=== PATIENT | male | born 1980 ===

== ENCOUNTER 2017-04-21 16:22 | Emergency (ER) | payer MEDICARE ==
--- NOTE | 2017-04-21 17:12 | C.PDOC ---
History Of Present Illness 36 y/o male brought by ambulance to ED. Pt states he drank alcohol. Denies drug use or any physical complaints. Pr is ambulating steady and requests to be discharged. Chief Complaint (Nursing): Substance Abuse History Per: Patient History/Exam Limitations: no limitations Onset/Duration Of Symptoms: Hrs Current Symptoms Are (Timing): Still Present Suicide/Self Injury Attempted (Context): None Modifying Factor(s): Alcohol Associated Symptoms: denies: Anger, Depression, Suicidal Thoughts, Suicidal Plan Involuntary Hold By: None Recent travel outside of the [place]: No Past Medical History Reviewed: Historical Data, Nursing Documentation, Vital Signs Vital Signs: Last Vital Signs Temp 99 F 04/21/17 17:45 Pulse 70 04/21/17 17:45 Resp 20 04/21/17 17:45 BP 160/80 H 04/21/17 17:45 Pulse Ox 99 04/21/17 17:45 - Medical History PMH: No Chronic Diseases Surgical History: No Surg Hx Family History: States: No Known Family Hx - Social History Hx Alcohol Use: No Hx Substance Use: No - Immunization History Hx Tetanus Toxoid Vaccination: No Hx Influenza Vaccination: No Hx Pneumococcal Vaccination: No Review Of Systems Constitutional: Negative for: Fever, Chills Cardiovascular: Negative for: Chest Pain, Palpitations Gastrointestinal: Negative for: Nausea, Vomiting, Abdominal Pain, Diarrhea Skin: Negative for: Rash, Lesions, Jaundice, Bruising Neurological: Negative for: Weakness, Numbness Psych: Negative for: Suicidal ideation Physical Exam - Physical Exam Appears: Well, Non-toxic, No Acute Distress Skin: Normal Color, Warm, Dry Head: Atraumatic, Normacephalic Eye(s): bilateral: Normal Inspection Oral Mucosa: Moist Neck: Supple Chest: Symmetrical, No Tenderness Cardiovascular: Rhythm Regular Respiratory: Normal Breath Sounds, No Decreased Breath Sounds, No Rales, No Rhonchi, No Wheezing Gastrointestinal/Abdominal: Soft, No Tenderness, No Distention, No Guarding, No Rebound Extremity: Normal ROM, No Tenderness, No Pedal Edema Extremity: Bilateral: Normal Color And Temperature, Normal ROM Neurological/Psych: Oriented x3, Normal Speech, Normal Cognition Medical Decision Making Medical Decision Making: Ordered drug screen. Disposition - Disposition Referrals: [facility] [Outside] [facility] [Outside] Disposition: HOME/ ROUTINE Disposition Time: 17:20 Condition: GOOD Additional Instructions: Thank you for letting us take care of you today. The emergency medical care you received today was directed at your acute symptoms. If you were prescribed any medication, please fill it and take as directed. It may take several days for your symptoms to resolve. Return to the Emergency Department if your symptoms worsen, do not improve, or if you have any other problems. Please contact your doctor or call one of the physicians/clinics you have been referred to that are listed on the Patient Visit Information form that is included in your discharge packet. Bring any paperwork you were given at discharge with you along with any medications you are taking to your follow up visit. Our treatment cannot replace ongoing medical care by a primary care provider (PCP) outside of the emergency department. Thank you for allowing the [facility] team to be part of your care today. Follow up with your doctor or the clinic next week for re-evaluation and further management. Instructions: Abuse of Alcohol (ED) Forms: [employer] (East [place]orese) - Clinical Impression Clinical Impression: Alcohol abuse - Scribe Statement The provider has reviewed the documentation as recorded by the Aliyaibelzbieta Peoples All medical record entries made by the Aliyaibelzbieta were at my direction and personally dictated by me. I have reviewed the chart and agree that the record accurately reflects my personal performance of the history, physical exam, medical decision making, and the department course for this patient. I have also personally directed, reviewed, and agree with the discharge instructions and disposition.
[2017-04-21 17:45] VITALS: RESP 20
[2017-04-21 17:47] VITALS: BP 160/80; PULSE 70; TEMP 99; O2SAT 99
== END 2017-04-21 17:45 | disposition home or self-care (01) ==
LOC: C.ER 16:22
DX: F10.10 Alcohol abuse, uncomplicated (principal); Y90.9 Presence of alcohol in blood, level not specified

== ENCOUNTER 2017-09-08 22:29 | Emergency (ER) | payer MEDICARE, MEDICAID ==
[2017-09-08 22:45] VITALS: BP 152/90; PULSE 90; RESP 18; TEMP 99; O2SAT 97
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
== END 2017-09-09 00:30 | disposition left against medical advice (07) ==
LOC: C.ER 22:29
DX: F19.10 Other psychoactive substance abuse, uncomplicated (principal)

== ENCOUNTER 2017-12-04 15:40 | Emergency (ER) | payer MEDICARE, MEDICAID ==
[2017-12-04 16:05] VITALS: RESP 16; O2SAT 98
--- NOTE | 2017-12-04 16:07 | C.PDOC ---
History Of Present Illness 37 yr old male w/ hx of etoh abuse, PCP Abuse presents BIBA for medical clearance. Per notes pt was outside, and appeared drunk. He denies any SI, HI, but notes drinking today. He denies any depression, falls, chest pain or sob. No nausea or vomiting. No falls. No neck stiffness or fever. No other complaints. Time Seen by Provider: 12/04/17 16:02 Chief Complaint (Nursing): Medical Clearance History Per: Patient Past Medical History Vital Signs: Last Vital Signs Temp 98.6 F 12/04/17 16:04 Pulse 69 12/04/17 16:04 Resp 16 12/04/17 16:04 BP 152/84 H 12/04/17 16:04 Pulse Ox 98 12/04/17 16:04 - Medical History PMH: Asthma Family History: States: Unknown Family Hx - Social History Hx Alcohol Use: No Hx Substance Use: Yes - Immunization History Hx Tetanus Toxoid Vaccination: No Hx Influenza Vaccination: No Hx Pneumococcal Vaccination: No Review Of Systems Constitutional: Negative for: Fever Eyes: Negative for: Pain ENT: Negative for: Ear Pain Cardiovascular: Negative for: Chest Pain Respiratory: Negative for: Cough Gastrointestinal: Negative for: Nausea, Vomiting Genitourinary: Negative for: Dysuria Musculoskeletal: Negative for: Neck Pain Skin: Negative for: Rash Neurological: Negative for: Weakness, Numbness, Incoordination, Change in Speech, Seizures, Headache Psych: Negative for: Anxiety, Depression, Psychosis, Suicidal ideation, Withdrawal Physical Exam - Physical Exam Appears: Well, Non-toxic, No Acute Distress Skin: Normal Color, Warm, Dry Head: Atraumatic, Normacephalic, No Tenderness Eye(s): bilateral: Normal Inspection, PERRL, EOMI Ear(s): Bilateral: Normal Nose: Normal Throat: Normal Neck: Normal Cardiovascular: Rhythm Regular Respiratory: Normal Breath Sounds Gastrointestinal/Abdominal: Normal Exam Back: Normal Inspection, No CVA Tenderness Extremity: Normal ROM, No Tenderness Extremity: Bilateral: Atraumatic Neurological/Psych: Oriented x3, Normal Speech, Normal Cranial Nerves, No Cerebellar Signs, Normal Motor, Normal Sensation Gait: Steady Other Neurological Findings: No Facial Palsy Extremity: Right: No Drift, Left: No Drift, Upper: No Drift, Lower: No Drift ED Course And Treatment - Laboratory Results Result Diagrams: 12/04/17 17:53 12/04/17 17:53 Medical Decision Making Medical Decision Makin yr old M w/ hx of substance abuse p/w medical clearance for possible etoh intox. Well appearing on exam. Pt noted be be acting erraticaly per previous charts, will thus seek baseline labs and CT. Likely etoh overall. pending labs and CT [address] stable gait 1834 +PCP labs otherwise unremarkable 1926 Pt has no delusions, normal affect, in NAD, no cerebellar signs, normal neuro exam, clear for d/c home. No SI or HI. recommended to D/C PCP. Pt notes understanding Disposition - Disposition Disposition Time: 19:22 Condition: GOOD Forms: [facility] (Chilean) - Clinical Impression Clinical Impression: PCP (phencyclidine) abuse
--- NOTE | 2017-12-04 17:49 | CT ---
Date of service: 12/04/2017 PROCEDURE: CT HEAD WITHOUT CONTRAST. HISTORY: medical clear COMPARISON: None available. TECHNIQUE: Axial computed tomography images were obtained through the head/brain without intravenous contrast. Radiation dose: Total exam DLP = 920 mGy-cm. This CT exam was performed using one or more of the following dose reduction techniques: Automated exposure control, adjustment of the mA and/or kV according to patient size, and/or use of iterative reconstruction technique. FINDINGS: HEMORRHAGE: No intracranial hemorrhage. BRAIN: No mass effect or edema. No atrophy or chronic microvascular ischemic changes. VENTRICLES: Unremarkable. No hydrocephalus. CALVARIUM: Unremarkable. PARANASAL SINUSES: Unremarkable as visualized. No significant inflammatory changes. MASTOID AIR CELLS: Unremarkable as visualized. No inflammatory changes. OTHER FINDINGS: Leftward nasal septal deviation and leftward spurring IMPRESSION: No intracranial hemorrhage or mass effect.
--- NOTE | 2017-12-04 17:53 | CT ---
Date of service: 12/04/2017 PROCEDURE: CT Cervical Spine without contrast HISTORY: medical clear COMPARISON: None available. TECHNIQUE: Axial computed tomography images were obtained of the cervical spine without the use of intravenous contrast. Coronal and sagittal reformatted images were created and reviewed. Radiation dose: Total exam DLP = 464 mGy-cm. This CT exam was performed using one or more of the following dose reduction techniques: Automated exposure control, adjustment of the mA and/or kV according to patient size, and/or use of iterative reconstruction technique. FINDINGS: VERTEBRAE: No fracture. Normal alignment. No destructive bony lesion. Anterior mild spurring an anterior limbus vertebrae along the inferior C6 vertebral body level. DISCS/SPINAL CANAL/NEURAL FORAMINA: No significant central canal or neural foraminal stenosis. Discs heights are grossly preserved. PARASPINAL SOFT TISSUES: Unremarkable. OTHER FINDINGS: None. IMPRESSION: Minimal degenerative changes primarily at anterior inferior C6 level. No fracture or lytic lesion. No gross spinal stenosis.
[2017-12-04 17:57] LABS: EOS # 0.1 K/uL (0.0-0.7); LYMPH # 1.6 K/uL (1.0-4.3); MEAN PLATELET VOLUME 8.7 fL (7.2-11.7); MONO # 0.4 K/uL (0.0-0.8); MONO % 5.1 % (0.0-10.0)
[2017-12-04 18:00] LABS: URINE BILIRUBIN NEGATIVE (NEGATIVE); URINE BLOOD NEGATIVE (NEGATIVE); URINE CLARITY Clear (Clear); URINE COLOR Straw (YELLOW); URINE GLUCOSE (UA) NORMAL (Normal); URINE LEUKOCYTE ESTERASE NEG Leu/uL (Negative); URINE PROTEIN NEGATIVE (NEGATIVE); URINE UROBILINOGEN NORMAL mg/dL (0.2-1.0)
[2017-12-04 18:01] LABS: BASO % 0.4 % (0.0-2.0); HEMOGLOBIN 12.4 g/dL (12.0-18.0); LYMPH % 18.9 % (20.0-40.0); MEAN CELL VOLUME 58.7 fL (80.0-94.0); MEAN CORPUSCULAR HEMOGLOBIN 19.3 pg (27.0-31.0); MEAN CORPUSCULAR HGB CONC 32.8 g/dL (33.0-37.0); NEUT # 6.5 K/uL (1.8-7.0); NEUT % 74.6 % (50.0-75.0); NRBC % 0.2 % (0.0-2.0); RBC 6.44 Mil/uL (4.40-5.90); RED CELL DISTRIBUTION WIDTH 16.5 % (11.5-14.5); WHITE BLOOD COUNT 8.7 K/uL (4.8-10.8)
[2017-12-04 18:19] LABS: BARBITURATES, UR NEGATIVE (NEGATIVE); BENZODIAZEPINES, UR NEGATIVE (NEGATIVE); OPIATES, UR NEGATIVE (NEGATIVE)
[2017-12-04 18:22] LABS: PHENCYCLIDINE, UR POSITIVE (NEGATIVE)
[2017-12-04 18:25] LABS: ALB/GLOB RATIO 1.7 (1.0-2.1); ALBUMIN 5.3 g/dL (3.5-5.0); ALT/SGPT 24 U/L (21-72); AST/SGOT 27 U/L (17-59); BLOOD UREA NITROGEN 15 mg/dL (9-20); GFR NON-AFRICAN AMERICAN > 60
[2017-12-04 19:43] VITALS: BP 140/89; PULSE 65; TEMP 98.5
== END 2017-12-04 19:41 | disposition home or self-care (01) ==
LOC: C.ER 15:40
DX: F16.10 Hallucinogen abuse, uncomplicated (principal)
CPT/HCPCS: 70450; 72125; 80053; 81001; 82948; 85025; 99283; G0480